=== PATIENT | male | born 1940 | race Caucasian/White ===

== ENCOUNTER 2017-06-13 18:30 | Inpatient (IN) | payer MEDICARE, BC ==
--- NOTE | ~2017-06-13 | OP ---
PATIENT NAME: SHERIDAN CISSE MEDICAL RECORD: [id number] :38 LOCATION:D.M2 D.2101 ADMISSION DATE:06/13/17 SURGEON: JAYRO NG MD DATE OF OPERATION: 06/14/2017 PROCEDURE: Left heart catheterization, selective coronary angiography, right radial artery approach. CATHETERS: [place] catheter, radial sheath. The procedure was well tolerated. The patient returned to vera. Sheath was removed. TR band was placed. FINDINGS: Left ventriculography in 30-degree SHAH view: Normal wall motion, normal systolic function. CORONARY ANATOMY: LEFT MAIN: Left main is free of disease. LAD: Free of disease in diagonal system. CIRCUMFLEX: Free of disease in marginal system. RIGHT CORONARY ARTERY: Dominant artery, gives rise to PDA, free of disease. IMPRESSION: Normal systolic function. Normal coronary anatomy. TRANSINT:[id number] Voice Confirmation ID: [id number] DOCUMENT ID: [id number] JAYRO NG MD at 1337 CC: [id number] DICTATION DATE: 06/14/17 1202 ORNAMENT SETTER: 06/14/17 1246 DIS IN 06/15/17 [facility] [address] [place] [address]
--- NOTE | ~2017-06-13 | CN ---
PATIENT NAME:SHERIDAN CISSE MEDICAL RECORD: [id number] : 38 LOCATION:D.[facility] [place] [facility] D.2101 ADMIT DATE: 06/13/17 ACCOUNT: [id number] CONSULTING PHYSICIAN: JAYRO NG MD REFERRING PHYSICIAN: CAT BOOKER MD DATE OF CONSULTATION: 06/14/2017 HISTORY OF PRESENT ILLNESS: A 76-year-old gentleman [facility], 2-3 day history of chest pain. This is in the face of an increased hypertension, has a family history of sudden cardiac , long-term smoking history. PAST MEDICAL HISTORY: Otherwise, hypertension. MEDICATIONS: Include lisinopril 10 mg p.o. every day, metoprolol 25 b.i.d. SOCIAL HISTORY: , long-term smoking and nondrinker. Easily takes care of all ADLs. No set exercise program. REVIEW OF SYSTEMS: The patient reports easy bruising but reports no swollen glands. The patient reports no fever, no night sweats, no significant weight gain, no significant weight loss. No significant exercise tolerance. The patient reports no dry eyes, no irritation, no vision change. Patient reports no difficulty hearing and no ear pain. Patient reports no frequent nose bleeds or nose and sinus problems. Patient reports on arm pain on exertion. No shortness of breath while lying down. No history of heart murmur. Patient reports no cough, no wheezing or coughing up blood. Patient reports no abdominal pain, no vomiting. Normal appetite. No diarrhea and not vomiting blood. No nausea and no constipation. Patient reports no incontinence. No difficulty urinating. No hematuria. No increased frequency. Patient reports no muscle aches. No weakness, no arthralgias, no back pain. No swelling of the extremities. Patient reports no abnormal mole, no jaundice, no rashes. Reports no loss of consciousness. No weakness and no numbness. No seizures, dizziness, or headaches. The patient reports no depression, no sleep disturbance, feeling safe in a relationship and no alcohol abuse. Patient reports on fatigue. Reports no runny nose or sinus pressure. No itching, no hives, and no frequent sneezing. PHYSICAL EXAMINATION: GENERAL: Pleasant gentleman in no acute distress. VITAL SIGNS: Blood pressure 132/47, pulse 59 and regular. HEENT: Normocephalic, atraumatic. NECK: No bruits noted. HEART: Regular. II/ systolic ejection murmur. LUNGS: Clear. ABDOMEN: Soft, nontender. EXTREMITIES: Pulses 2+ with no edema. DIAGNOSTIC DATA: ECG without acute change. IMPRESSION: Acute coronary syndrome, maybe LV strain in the face of elevated pressure. We will plan for diagnostic coronary angiography, intervention based on the above. TRANSINT:[id number] Voice Confirmation ID: [id number] DOCUMENT ID: [id number] CONSULT REPORT [id number] SHERIDAN CISSE,JAYRO Bell MD at 1337 CC: [id number] DICTATION DATE: 06/14/17824 AUTOMATIC PRINT DEVELOPER: 06/14/17 1141 DIS IN 06/15/17 [id number] [place] [address]
--- NOTE | ~2017-06-13 | HEMODYNAMI ---
PATIENT:SHERIDAN CISSE MEDICAL RECORD: [id number] : 38 [id number] AD[facility]ION DATE: 06/13/17 Generatedon:06/14/201712:01 Patient name: SHERIDAN CISSE Patient #: [id number] SSN: D OB: 1940 Date of study: 06/14/2017 Page: Of Hemodynamic Procedure Report Patient Data Patient Demographics Procedure consent was obtained First Name: SHERIDAN Gender: Male Last Name: : 1940 Patient #: [id number] Age: 76 year(s) Race: Unknown Additional ID: [id number] Contact details Address: [address] [place] [address] State: [place] City: [place] Zip code: [address] Past Medical History Allergies: No known allergies Admission Admission Data Admission Date: 06/13/2017 Admission Time: 19:51 Room #: D.2101 Lab Results Lab Result Date: 06/14/2017 Lab Result Time: 4:58 Biochemistry Name Units Result Min Max BUN mg/dl 12 --(-*--)-- 7 18 Creatinine mg/dl 1.1 --(--*-)-- 0.6 1.3 CBC Name Units Result Min Max Hematocrit % 44.1 --(*---)-- 42 54 Hemoglobin g/dl 14.7 --(-*--)-- 13.5 17.5 Procedure Procedure Types Cath Procedure Diagnostic Procedure C [facility] w/Coronaries Procedure Description Procedure Date Procedure Date: 06/14/2017 Procedure Start Time: 11:53 Procedure End Time: 12:00 Procedure Staff Name Function Yazan Aguilar MD Performing Physician Ko Carlos RT Monitor Anna Rosales RT Scrub Tiago Johansen RN Nurse Procedure Data Cath Procedure Fluoroscopy Diagnostic fluoroscopy Total fluoroscopy Time: 2.1 time: 2.1 min min Diagnostic fluoroscopy Total fluoroscopy dose: 521 dose: 521 mGy mGy Contrast Material Contrast Material Type Amount (ml) Isovue 300 51 Entry Location Entry Primary Successful Side Size Upsize Upsize Entry Closure Ruvalcaba ccessful Closure Location (Fr) 1 (Fr) 2 (Fr) Remarks Device Remarks Radial Right 6 Fr Mechanical artery Short Compression Estimated blood loss: 5 ml Diagnostic catheters Device Type Used For End Catheter Placement DIAGNOSTIC Jordan 110cm 5 Procedure Fr catheter ([id number]) Procedure Complications No complications Procedure Medications Medication Administration Route Dosage 0.9% NaCl I.V. 100 ml/hr Oxygen etCO2 Nasal cannula 2 l/min Heparin Flush Bag added to field 2 bags (1000units/500ml NS) Lidocaine 2% added to field 20 Radial Cocktail added to field 1 syringe (Verapomil 2mg/Nitro 400mcg/Heparin 1500units) Versed I.V. 1 mg Fentanyl I.V. 50 mcg Radial Cocktail I.A. 1 syringe (Verapomil 2mg/Nitro 400mcg/Heparin 1500units) Hemodynamics Rest HGB: 14.7 (g/dl) Heart Rate: 55 (bpm) Pressure Samples Time Site Value (mmHg) Purpose Heart Use Rate(bpm) 11:55 LV 92/0,6 Snapshot 72 11:55 AO 88/56(70) Pullback 70 11:55 LV 85/3,5 Pullback 70 Gradients Valve Time Site 1 Site 2 Mean SEP/DFP Peak To Heart Use (mmHg) (sec/min) Peak Rate (mmHg) (bpm) Aortic 11:55 LV AO 0 5 0 70 85/3,5 88/56(70) Calculations Valve P-P Mean Valve Index Valve Source Name Gradient Area Flow (cm2) Aortic 0 0 0 0 Snapshots Pre Cath Intra NCS Post Cath Vital Signs Time Heart Resp SPO2 etCO2 NIBP (mmHg) Rhythm Pain Sedation Rate (ipm) (%) (mmHg) Status Level (bpm) 11:49:23 55 13 97 32.1 154/81(123) NSR 0 (11) 10(A) , No pain 11:54:05 68 13 96 32.1 124/68(92) NSR 0 (11) 10(A) , No pain 11:58:44 68 14 93 35.2 120/66(91) NSR 0 (11) 9(A) , No pain Medications Time Medication Route Dose Verified Delivered Reason Notes Effectiveness by by 11:51:26 0.9% NaCl I.V. 100 Tiago Tiago Per ml/hr Eleno Johansen physician RN RN 11:51:36 Oxygen etCO2 2 l/min Tiago Tiago Per Nasal Eleno Johansen physician cannula RN RN 11:51:48 Heparin Flush added 2 bags Tiago Tiago used for Bag to Lorigan Lorigan procedure (1000units/500ml field RN RN NS) 11:51:59 Lidocaine 2% added 20ml Tiago Tiago for local to vial Lorigan Lorigan anesthetic field RN RN 11:52:15 Radial Cocktail added 1 Tiago Tiago used for (Verapomil to syringe Lorigan Lorigan procedure 2mg/Nitro field RN RN 400mcg/Heparin 1500units) 11:53:09 Versed I.V. 1 mg Tiago Tiago for sedation Eleno Johansen RN RN 11:53:17 Fentanyl I.V. 50 mcg Tiago Tiago for sedation Eleno Johansen RN RN 11:53:26 Radial Cocktail I.A. 1 Tiago Yazan for (Verapomil syringe Lorigan Lauren vasodilation 2mg/Nitro SAÚL HAJI 400mcg/Heparin 1500units) Procedure Log Time Note 10:46:16 Informed consent obtained and on chart 10:46:40 Diagnostic Cath status Elective 10:46:42 Time tracking: Regular hours (M-F 7:00 - 5:00) 10:46:45 Plan of Care:Hemodynamics will remain stable., Cardiac rhythm will remain stable., Comfort level will be maintained., Respiratory function will remain adequate., Patient/ family verbilizes understanding of procedure., Procedure tolerated without complication., Recovers from procedure without complications.. 10:46:51 H&P Date Dictated: 06/14/2017 Within 30 days and on chart.. 10:48:26 Lab Result : BUN 12 mg/dl 10:48:26 Lab Result : Hemoglobin 14.7 g/dl 10:48:26 Lab Result : Creatinine 1.1 mg/dl 10:48:26 Lab Result : Hematocrit 44.1 % 10:48:36 Lab results completed and on chart. 11:25:00 Tiago Johansen RN sent for patient. Start room use. 11:33:47 Patient received from Med II to [facility] 1 Alert and oriented. Tansferred to table in Supine position. 11:33:49 Warm blankets applied, and janice hugger turned on for patient comfort. 11:33:49 Correct patient and procedure confirmed by team. 11:33:50 ECG and BP/O2 sat monitors applied to patient. 11:33:51 Pre-procedure instructions explained to patient. 11:33:51 Pre-op teaching completed and patient verbalized understanding. 11:33:53 Family in patients room. 11:33:54 Patient NPO since Midnight. 11:34:05 Patient allergic to No known allergies 11:47:39 Vital chart was started 11:47:43 Baseline sample Acquired. 11:47:57 Rhythm: sinus rhythm 11:48:00 Full Disclosure recording started 11:48:07 Is patient on blood thinner?No 11:48:09 Patient diabetic? No. 11:48:13 Previous problem with sedation/anesthesia? Yes nausea 11:48:16 Snore? Yes 11:48:17 Sleep apnea? No 11:48:18 Deviated septum? No 11:48:19 Opens mouth fully? Yes 11:48:20 Sticks out tongue? Yes 11:48:21 Airway obstruction? No ? 11:48:24 Dentures? Yes out 11:48:27 Modified Wei's test Ulnar < 7 seconds 11:48:28 Patient pain scale 0/10 ?. 11:48:39 IV patent on arrival in left forearm with 0.9% NaCl at [facility]. 11:48:47 Right Radial & Right Groin area was prepped with chlora-prep and draped in sterile fashion 11:48:48 Alarms reviewed by R. N. 11:48:48 Sharps counted by scrub and verified by R.N. 11:48:52 Use device set Radial Dx or PCI 11:48:53 ACIST Syringe (26433) opened to sterile field. 11:49:29 Medline Cath Pack ([id number]) opened to sterile field. 11:49:31 Bag Decanter (2001S) opened to sterile field. 11:49:33 Tegaderm 4 x 4 (1626W) opened to sterile field. 11:49:34 ACIST Hand Control (73991) opened to sterile field. 11:49:34 ACIST Manifold (55424) opened to sterile field. 11:49:36 MBrace Wrist Support ([id number]) opened to sterile field. 11:49:38 DIAGNOSTIC WIRE .035 260cm J wire (939841) opened to sterile field. 11:49:40 SHEATH 6Fr Prelude Radial ([id number]) opened to sterile field. 11:49:47 Physician arrived 11:49:48 --------ALL STOP TIME OUT------ 11:49:48 Final Timeout: patient, procedure, and site verified with staff and physician. All members of the team are in agreement. 11:49:50 Right Radial & Right Groin site verified by team. 11:49:52 Physical assessment completed. ASA score P 2 - A patient with mild systemic disease as per Yazan Aguilar MD. 11:49:56 Sedation plan: IV Moderate Sedation Medication:Versed, Fentanyl 11:51:26 0.9% NaCl 100 ml/hr I.V. was administered by Tiago Johansen RN; Per physician; 11:51:36 Oxygen 2 l/min etCO2 Nasal cannula was administered by Tiago Johansen RN; Per physician; 11:51:48 Heparin Flush Bag (1000units/500ml NS) 2 bags added to field was administered by Tiago Johansen RN; used for procedure; 11:51:59 Lidocaine 2% 20ml vial added to field was administered by Tiago Johansen RN; for local anesthetic; 11:52:15 Radial Cocktail (Verapomil 2mg/Nitro 400mcg/Heparin 1500units) 1 syringe added to field was administered by Tiago Johansen RN; used for procedure; 11:53:03 Procedure started. 11:53:09 Versed 1 mg I.V. was administered by Tiago Johansen RN; for sedation; 11:53:09 Local anesthetic to right radial artery with Lidocaine 2% by Yazan Aguilar MD.INITIAL ACCESS ONLY 11:53:17 Fentanyl 50 mcg I.V. was administered by Tiago Johansen RN; for sedation; 11:53:17 A 6 Fr Short sheath was inserted into the Right Radial artery 11:53:26 Radial Cocktail (Verapomil 2mg/Nitro 400mcg/Heparin 1500units) 1 syringe I.A. was administered by Yazan Aguilar MD; for vasodilation; 11:53:31 A DIAGNOSTIC Jordan 110cm 5 Fr catheter ([id number]) was advanced over the wire and used for Procedure. 11:53:35 Zero performed for pressure channel P1 11:55:24 Injector settings: Ml/sec: 5, Volume: 15, 11:55:28 EF : 55 % 11:56:27 RCA angiography performed. 11:57:06 LCA angiography performed. 11:57:43 Catheter removed. 11:58:22 TR BAND Large ([id number]) opened to sterile field. 11:58:34 Sheath removed intact; hemostasis achieved with Mechanical Compression to the Right Radial artery. 11:58:36 Procedure ended.(Physican Out) 11:58:44 Fluoroscopy time 02.10 minutes. 11:58:47 Fluoroscopy dose: 521 mGy 11:58:47 Flurop Dose total: 521 11:58:51 Contrast amount:Isovue 300 51ml. 11:58:53 Sharps counted by scrub and verified by R.N. 11:58:56 TR band inflated with 11cc of air. 11:58:57 Insertion/operative site no bleeding no hematoma. 11:59:03 Post right radial artery:stable, soft, clean and dry 11:59:08 Post procedure rhythm: unchanged. 11:59:11 Estimated blood loss: 5 ml 11:59:12 Post procedure instruction explained to patient.Patient verbalizes understanding. 11:59:12 Patient needs reinforcement of post procedure teaching. 11:59:28 Procedure and supply charges have been captured, reviewed, submitted and are correct. 11:59:46 Procedure Complication : No complications 11:59:48 Vital chart was stopped 11:59:49 See physician's report for complete and final results. 11:59:56 Report given to PCU. 11:59:59 Patient transfered to PCU with Stretcher. 12:00:03 Procedure ended. 12:00:03 Full Disclosure recording stopped 12:00:12 End room use (Document Last) Device Usage Item Name Manufacture Quantity Catalog Number Hospital Part Current M inimal Lot# / Charge Number Stock Stock Serial# Code ACIST Syringe Acist 1 76365 403728 389738 115819 2 0 (04391) [employer] Medline Cath Cardinal 1 [id number] 385456 51385 384430 5 [employer] ([id number]) Bag Decanter Microtek 1 036769 67229 609494 5 () [employer] Tegaderm 4 x 4 3M 1 1626W 534883 431935 733645 5 (1626W) ACIST Hand Acist 1 58552 014129 812797 623267 5 Control (87092) [employer] ACIST Manifold Acist 1 96288 475843 167041 033266 5 (61817) [employer] MBrace Wrist Advanced 1 140-0250-00 318913 45487 443186 5 Support Vascular ([id number]) Dynamics DIAGNOSTIC WIRE [facility] [place] 1 620319 904669 700187 175037 3 0 .035 260cm J wire (528506) SHEATH 6Fr Merit 1 [id number] 613395 930065 539702 5 Prelude Radial Medical ([id number]) DIAGNOSTIC Terumo 1 11-9397 368032 750396 638953 5 Jordan 110cm 5 Fr catheter (686953) TR BAND Large Terumo 1 [id number] 783035 847109 751694 4 0 ([id number]) Signature Audit [place] Stage Time Signature Unsigned Intra-Procedure 06/14/2017 Ko Carlos 12:01:29 PM RT(R) Signatures Monitor : Ko Carlos RT Signature : Date : Time : [address] [id number] [place] [address]
[2017-06-13 20:00] VITALS: BP 124/65
[2017-06-13] MEDS ORDERED: LOPRESSOR25 MG PO (21:13)
[2017-06-13] MEDS ORDERED: LISINOPRIL10 MG PO (21:14)
[2017-06-13] MEDS ORDERED: CATAPRES0.1 MG (22:04)
[2017-06-14] VITALS (7 sets, daily range): BP systolic 101–183; BP diastolic 47–77
[2017-06-14] LABS: CKMB 0.3 U/L (0.0-3.6); CREATINE KINASE 83 UL (21-232)
[2017-06-14 00:02] LABS: TROPONIN-I < 0.017 ng/mL (0.000-0.060)
[2017-06-14 05:39] LABS: CKMB 0.2 U/L (0.0-3.6); CREATINE KINASE 74 UL (21-232)
[2017-06-14 05:42] LABS: TROPONIN-I < 0.017 ng/mL (0.000-0.060)
[2017-06-14 08:45] LABS: ANION GAP 15.1 mmol/L (8-16); CALCIUM 8.7 mg/dL (8.5-10.1); CARBON DIOXIDE 23.1 mmol/L (21.0-32.0); CREATININE - SERUM 1.1 mg/dL (0.6-1.3); POTASSIUM - SERUM 4.2 mmol/L (3.5-5.1)
[2017-06-14 08:55] LABS: BASOPHILS 0.6 % (0-2); EOSINOPHILS 2.9 % (0-7); HEMATOCRIT 44.1 % (42.0-54.0); HEMOGLOBIN 14.7 g/dL (13.5-17.5); IMMATURE GRANULOCYTES 0.2 % (0-5); LYMPHOCYTES 27.4 % (15-50); MCH 31.5 pg (26.0-34.0); MCHC 33.3 g/dL (31.0-37.0); MCV 94.4 fL (80.0-100.0); MEAN PLATELET VOLUME 11.1 fL (7.4-10.4); MONOCYTES 8.9 % (2-11); PLATELET COUNT 173 10x3/uL (130-400); RBC 4.67 10x6/uL (4.20-6.10); RDW 12.6 % (11.5-14.5); WBC 5.1 10x3/uL (4.8-10.8)
[2017-06-15 05:32] VITALS: BP 129/52
[2017-06-15] MEDS ORDERED: PROTONIX40 MG PO (09:12)
[2017-06-15 09:13] VITALS: BP 150/66
== END 2017-06-15 11:33 | disposition home or self-care (01) | DRG 287 ==
LOC: D.MS 18:30 → D.M2 19:51
PROVIDERS: Internal Medicine Interventional Cardiology
PROC: B2151ZZ Fluoroscopy of Left Heart using Low Osmolar Contrast (ICD-10-PCS; 2017-06-14)
PROC: 4A023N7 Measurement of Cardiac Sampling and Pressure, Left Heart, Percutaneous Approach (ICD-10-PCS; 2017-06-14)
PROC: B2111ZZ Fluoroscopy of Multiple Coronary Arteries using Low Osmolar Contrast (ICD-10-PCS; principal; 2017-06-14 11:00)
DX: R07.9 Chest pain, unspecified (principal); R00.1 Bradycardia, unspecified; I10 Essential (primary) hypertension; F32.9 Major depressive disorder, single episode, unspecified